=== PATIENT | male | born 1960 | race Caucasian/White ===

== ENCOUNTER 2024-09-14 16:17 | Outpatient (AMB) | payer OTHER, SELFPAY ==
--- NOTE | 2024-09-14 16:28 | AM.OFFWIN_ITS ---
Intake Vital Signs 09/14/24 16:29 Weight 184 lb BP 150/100 H Blood Pressure Location Lt brachial Position Sitting Pulse 79 Pulse Source Pulse Oximeter Temp 98.1 F Temp Source Oral Pulse Oximetry (%) 98 Oxygen Delivery Method Room Air Intake Visit Reasons: EP-?sinus infection Intake Note: Patient here for sinus congestion that has been present for over 1 year. Patient Tobacco Use Status: Never used Tobacco Allergies No Known Allergies Allergy (Verified 09/14/24 16:30) Do you need a note to return to daycare/school/sports/work: No HPI HPI Comments History of Present Illness Details History The patient is a 64-year-old male presenting with sinus congestion and difficulty breathing through the nose, suspected allergic origin. - The patient reports a year-long histor y of sinus congestion and nasal breathing difficulty, worsening at night, without any noticeable improvement from montelukast. - The patient lacks typical allergy symp toms such as fatigue or headache but mentions sinus pain and pressure that subsides with fluticasone nasal spray indicating likely Allergic Rhinitis and sinusitis. Denies fevers, cough or ear pain. - The patient states he had ineffective treatment with Montelukast, doesn't remember being told he had asthma, was told he had allergies but did not identify specific allergies. Physical Exam General: Cooperative, healthy appearing, comfortable and no acute distress Orientation/consciousness: Patient oriented x3 Limitations: No limitations Head: Normal to inspection Ears: Hearing grossly normal bilaterally, external ears normal Nose: Normal external nose present, Normal nares present and No nasal discharge present Face and sinus: Normal facial exam and Yes sinuses nontender Mouth: Normal oral and palatal mucosa present and moist mucous membranes Throat: Yes tonsils normal, Yes uvula midline. Posterior oropharynx erythema with cobblestoning Eyes: Appearance normal, both eyes and all related structures Neck: Normal visual inspection Respiratory: Normal respiratory effort, able to speak in complete sentences, No active coughing, no respiratory distress, not tachypneic, no tripod positioning and no use of accessory muscles Skin: No rashes or lesions noted Neuro: Patient oriented x3 Extremities: Normal to inspection and Yes no clubbing, cyanosis or edema PFSH Social History Patient Tobacco Use Status: Never used Tobacco Review of Systems Const All systems reviewed & are unremarkable except as noted in HPI and below Physical Exam Vital Signs: Last Vital Signs Temp 98.1 F 09/14/24 16:29 Pulse 79 09/14/24 16:29 BP 150/100 H 09/14/24 16:29 Pulse Ox 98 09/14/24 16:29 Oxygen Delivery Method Room Air 09/14/24 16:29 Assessment & Plan Assessment & Plan (1) Allergic sinusitis: Code(s): J30.9 - Allergic rhinitis, unspecified Plan: Plan The patient's care involves treating Allergic Rhinitis and sinusitis, primarily through the prescription of Fluticasone nasal spray and levocetirizine for daily allergic symptom management. Instructions were provided to ensure nasal spray is used effectively. I recommended supporting symptom relief through saline nasal sprays or a neti pot. Short-term use of Benadryl may be considered for nasal symptoms at night, with caution for side effects. Future management of asthma symptoms or prescription refills should be under the care of the patient's primary healthcare provider. Recommendations included saline nasal spray use and neti pot for symptomatic relief. Patient was informed and verbally consented to the use of an ambient scribe for clinic note documentation during this visit Medications: New levocetirizine 5 mg PO QPM 30 tabs 0RF fluticasone propionate 50 mcg/actuation administer into each nostril 1 spray intranasal Q12H 90 days 16 grams 0RF Coding Level of Care Code New Pt Level 3 (67936) Diagnoses Allergic sinusitis J30.9
[2024-09-14 16:29] VITALS: BP 150/100; PULSE 79; TEMP 36.7; O2SAT 98
== END 2024-09-14 16:45 | disposition home or self-care (01) ==
PROVIDERS: Visit Provider Physician Assistant
DX: J30.9 Allergic rhinitis, unspecified (principal)

== ENCOUNTER → 2024-09-14 16:17 | Outpatient (BNVA) | payer OTHER, SELFPAY | PROVIDERS: Visit Provider Physician Assistant ==